=== PATIENT | female | born 1980 | race Caucasian/White ===

== ENCOUNTER 2018-11-22 17:55 | Inpatient (IN) | payer SELFPAY ==
[2018-11-22 18:40] LABS: #Basophils 0.1 thou/uL (0.0-0.2); #Eosinphils 0.1 thou/uL (0.0-0.7); #Lymphocytes 1.4 thou/uL (1.20-3.40); #Monocytes 0.3 thou/uL (0.11-0.59); #Neutrophils 4.5 thou/uL (1.40-6.50); %Basophils 1.2 % (0.0-1.0); %Eosinophils 1.8 % (0.0-10.0); %Lymphocytes 21.9 % (21.0-51.0); %Neutrophils 70.2 % (42.0-75.0); Hemoglobin 13.3 g/dL (12.0-16.0); Mean Corpuscular HGB CONC 34.1 g/dL (32.0-36.0); Mean Corpuscular Hemoglobin 31.8 pg (27.0-31.0); Mean Corpuscular Volume 93.3 fL (78.0-98.0); Mean Platelet Volume 7.1 fL (7.4-10.4); Platelet Count 211 thou/uL (130-400); RBC Distribution Width 12.3 % (11.5-14.5); White Blood Cell (WBC) Count 6.4 thou/uL (4.8-10.8)
[2018-11-22 19:04] LABS: ALT (SGPT) 15 U/L (8-55); AST (SGOT) 22 U/L (5-34); Alkaline Phosphatase 72 U/L (40-150); Anion Gap 13 mmol/L (10-20); BUN (Urea Nitrogen) 12 mg/dL (7.0-18.7); Bilirubin, Total 0.3 mg/dL (0.2-1.2); Calc. Creatinine Clearance 0 mL/min (70-130); Carbon Dioxide 29 mmol/L (22-29); Chloride 101 mmol/L (98-107); Estimated GFR-MDRD 78; Globulin 3.1 g/dL (2.4-3.5); Glucose 98 mg/dL (70-105); Potassium 4.4 mmol/L (3.5-5.1); Protein, Total 7.1 g/dL (6.0-8.3); Sodium 139 mmol/L (136-145)
[2018-11-22 19:13] LABS: Calcium 5.2 mg/dL (7.8-10.44)
[2018-11-22 20:05] LABS: Syphilis Antibody Index 20.53 S/CO (<1.00 Non-Reactive)
[2018-11-22 22:14] LABS: Bacteria/HPF None Seen HPF (None Seen); Bilirubin Negative (Negative); Blood, Urine 2+ (Negative); Clarity Clear (Clear); Glucose, Urine (Dipstick) Normal (Negative); Leukocyte Negative Leu/uL (Negative); Nitrite Negative (Negative); Protein, Urine (Dipstick) 10 mg/dL (Neg-Trace); RBC/HPF 0-3 HPF (0-3); Squamous Epithelial 0-3 HPF (0-3); Urobilinogen 3 mg/dL (Less than 2); WBC/HPF 0-3 HPF (0-3)
[2018-11-22] MEDS ORDERED: Calcium Gluc 4.6 MEQ/10 ML (100 MG/ML) ONE (23:10)
[2018-11-22] MEDS ORDERED: Ketorolac Tromethamine 30 MG/ML VIAL ONE (23:10)
--- NOTE | 2018-11-23 00:26 | RAD ---
RADIOGRAPH CHEST 1 VIEW: DATE: 11/22/2018 10:56 PM HISTORY: 37-year-old female with rash and fatigue FINDINGS: The visualized lung leslie are clear. The cardiomediastinal silhouette and hilar shadows are normal. The lateral costophrenic angles are sharp. The osseous structures appear normal. There is no pneumothorax. IMPRESSION: Negative.
[2018-11-23] MEDS ORDERED: Ondansetron PF 4 MG/2 ML Vial IVP PRN (00:43)
[2018-11-23] MEDS ORDERED: Ondansetron ODT 4 MG TAB SL PRN (00:43)
[2018-11-23 00:45] VITALS: BMI 38.9
[2018-11-23 00:57] LABS: Syphilis Antibody REACTIVE (Nonreactive)
[2018-11-23 02:29] LABS: #Eosinphils 0.1 thou/uL (0.0-0.7); #Lymphocytes 1.3 thou/uL (1.20-3.40); #Monocytes 0.3 thou/uL (0.11-0.59); #Neutrophils 3.3 thou/uL (1.40-6.50); %Basophils 0.3 % (0.0-1.0); %Eosinophils 1.3 % (0.0-10.0); %Lymphocytes 26.4 % (21.0-51.0); %Monocytes 5.8 % (0.0-10.0); %Neutrophils 66.3 % (42.0-75.0); Hemoglobin 12.3 g/dL (12.0-16.0); Mean Corpuscular HGB CONC 34.4 g/dL (32.0-36.0); Mean Corpuscular Hemoglobin 32.1 pg (27.0-31.0); Mean Corpuscular Volume 93.2 fL (78.0-98.0); Mean Platelet Volume 7.2 fL (7.4-10.4); Platelet Count 177 thou/uL (130-400); RBC Distribution Width 12.1 % (11.5-14.5); Red Blood Cell (RBC) Count 3.83 mill/uL (4.20-5.40); White Blood Cell (WBC) Count 4.9 thou/uL (4.8-10.8)
[2018-11-23 02:52] LABS: Anion Gap 16 mmol/L (10-20); BUN (Urea Nitrogen) 14 mg/dL (7.0-18.7); Calc. Creatinine Clearance 170 mL/min (70-130); Carbon Dioxide 20 mmol/L (22-29); Chloride 104 mmol/L (98-107); Estimated GFR-MDRD 81; Glucose 116 mg/dL (70-105); Magnesium 1.6 mg/dL (1.6-2.6); Potassium 3.7 mmol/L (3.5-5.1); Sodium 136 mmol/L (136-145)
[2018-11-23 02:55] LABS: Calcium 5.2 mg/dL (7.8-10.44)
[2018-11-23] MEDS ORDERED: Calcium Gluconate 4.6 MEQ in Sodium Chloride 0.9% 100 ML IVPB ONE (03:15)
[2018-11-23] MEDS: Acetaminophen 325 MG TAB PO PRN ×2 (04:00→09:59)
[2018-11-23] MEDS ORDERED: Bicillin CR 1.2 MILL UNITS/2 ML SYRINGE IM SCH (08:45)
[2018-11-23] MEDS ORDERED: Senokot S 8.6-50 MG TAB PO PRN (09:47)
[2018-11-23 09:53] LABS: #Lymphocytes 1.2 thou/uL (1.20-3.40); #Monocytes 0.3 thou/uL (0.11-0.59); #Neutrophils 4.5 thou/uL (1.40-6.50); %Basophils 0.5 % (0.0-1.0); %Eosinophils 0.8 % (0.0-10.0); %Lymphocytes 19.4 % (21.0-51.0); %Monocytes 4.6 % (0.0-10.0); %Neutrophils 74.7 % (42.0-75.0); Hemoglobin 13.2 g/dL (12.0-16.0); Mean Corpuscular HGB CONC 34.6 g/dL (32.0-36.0); Mean Corpuscular Hemoglobin 31.7 pg (27.0-31.0); Mean Corpuscular Volume 91.7 fL (78.0-98.0); Mean Platelet Volume 7.3 fL (7.4-10.4); Platelet Count 211 thou/uL (130-400); RBC Distribution Width 12.2 % (11.5-14.5); Red Blood Cell (RBC) Count 4.17 mill/uL (4.20-5.40)
[2018-11-23 09:59] LABS: BHCG - Serum Negative (NEGATIVE); Pregs Control Background? CLEAR/WHITE (CLR/WHITE); Pregs Control Bar Appear? YES (CONTROL BAR)
[2018-11-23 10:18] LABS: ALT (SGPT) 16 U/L (8-55); AST (SGOT) 23 U/L (5-34); Albumin 3.8 g/dL (3.5-5.0); Alkaline Phosphatase 66 U/L (40-150); Anion Gap 14 mmol/L (10-20); BUN (Urea Nitrogen) 14 mg/dL (7.0-18.7); Bilirubin, Total 0.2 mg/dL (0.2-1.2); Calc. Creatinine Clearance 162 mL/min (70-130); Carbon Dioxide 24 mmol/L (22-29); Chloride 103 mmol/L (98-107); Estimated GFR-MDRD 77; Globulin 3.6 g/dL (2.4-3.5); Glucose 91 mg/dL (70-105); Lipase 17 U/L (8-78); Phosphorus 7.6 mg/dL (2.3-4.7); Potassium 4.3 mmol/L (3.5-5.1); Protein, Total 7.4 g/dL (6.0-8.3); Sodium 137 mmol/L (136-145)
--- NOTE | 2018-11-23 10:24 | HP ---
PRIMARY CARE PHYSICIAN: None. CHIEF COMPLAINT: Rash, facial tic. HISTORY OF PRESENT ILLNESS: Ms. Peña is a 37-year-old female, who reported to the emergency room on 11/22/2018 for evaluation of a rash to her body x1 month. She also reported a sore to her vaginal area. Reports that the rash started on her trunk about one month ago and spread to her body. Reports that she used the [facility] service and was told that the two main concerns were syphilis and Ramer spotted fever. She has been living in [place] for this past summer. She reports that her has had the same rash for a lot longer and reports that he does have a history of IV drug abuse, but neither have been diagnosed with any STIs. The patient also has a history of low calcium and has been taking supplementation twice a day for the least the last month. The patient's EKG in the emergency room showed a prolonged QT. Otherwise normal sinus rhythm, beats per minute 85, no ectopics, axis is normal. Pertinent lab results; calcium is 5.2, magnesium 1.7, TSH 0.93, PTH less than 4. Troponin undetectable. The patient was given an amp of calcium gluconate over the overnight and repeat calcium was 5.2 as well. The patient admitted to the observation unit for further management. REVIEW OF SYSTEMS: Reports fatigue. Reports rash. Reports a sore to her vaginal area. Denies fever or chills. Does report facial tic on the left side intermittently. All other systems reviewed and are negative unless mentioned in the HPI. PAST MEDICAL HISTORY: Pertinent for hypocalcemia. PAST SURGICAL HISTORY: section x2. Tubal ligation. PSYCHIATRIC HISTORY: None. SOCIAL HISTORY: Drinks socially. She is a former drug user, abused marijuana. She is a tobacco smoker, smokes half a pack a day. ALLERGIES: NONE. CURRENT MEDICATIONS: 1. p.o. b.i.d. 2. Multivitamin once a day. PHYSICAL EXAMINATION: VITAL SIGNS: Blood pressure 118/74, pulse is 80, respiratory rate is 18, PO2 sats are 96% on room air, temp is 98.4. CONSTITUTIONAL: The patient is alert and oriented x3. She is tearful. HEENT: Head is atraumatic and normocephalic. Eyes; pupils are equally round and reactive to light. ENT; mouth exam is normal. Mucous membranes are moist. NECK: Trachea is midline. Normal range of motion. RESPIRATORY/CHEST: Breath sounds are clear. There are no findings of any respiratory distress. CARDIOVASCULAR: Heart sounds are normal. Regular rate and rhythm. ABDOMEN: Nontender. Bowel sounds are heard. BACK: Normal inspection. Normal range of motion of upper extremity. Motor strength is normal. Sensation intact. Radial pulses normal. Lower extremity, range of motion is normal. Motor strength is normal. Sensation intact. Pedal pulses are equal bilaterally. NEUROLOGIC: The patient is oriented to person, place, and time. Speech is normal. Cranial nerves 2 through 12 are grossly intact. SKIN: There is a rash present, flat, erythematous. Rash to the body, sparing palms, soles, and mucosal membranes. PSYCH: The patient has a normal affect, however, she is tearful when discussing her recent past medical history. PLAN AND ASSESSMENT: 1. Diffuse rash. ER ordered a syphilis titer which was positive. We will order some penicillin IM. Contact Dr. Lopez as a consult. We will do some HIV, VPIII, hepatitis panel, echocardiogram, test. 2. Hypocalcemia. We will recheck levels. PTH is also low. We will ask Nephrology to consult. 3. Case was discussed with Dr. Bone, who agrees to plan. GI and deep venous thrombosis prophylaxis has been started. Job ID: [id number]
[2018-11-23 10:30] LABS: Calcium 5.3 mg/dL (7.8-10.44)
[2018-11-23 10:38] LABS: HBCM Index 0.22 S/CO (0-0.79); HBSAg Index 0.19 S/CO (0-0.99); HIV (1/2) Antibody/Antigen Non-Reactive (NonReactive); HIV 1/2 INDEX 0.11 S/CO (<1.00); Hep A IgM AB Non-Reactive (NonReactive); Hep B Surf Ag Non-Reactive S/CO (NonReactive); Hep C IgG Ab Non-Reactive (NonReactive); Hep C Index 0.08 S/CO (0-0.79); Hepatitis B Core IgM Abs Non-Reactive (NonReactive)
[2018-11-23] MEDS ORDERED: Bicillin LA 2.4 MILL.UNITS/4 ML SYRINGE IM SCH ×2 (12:30→14:15)
[2018-11-23] MEDS: Nicotine 14 MG PATCH TD SCH (12:39)
[2018-11-23] MEDS ORDERED: Calcitriol 0.25 MCG CAP PO SCH (15:00)
[2018-11-23] MEDS ORDERED: Ergocalciferol 1.25 MG(50,000 UNITS) CAP PO SCH (15:00)
[2018-11-23] MEDS: Calcium Carbonate 500 MG ChewTAB PO SCH ×2 (15:35→21:36)
[2018-11-23 15:38] LABS: Magnesium 1.9 mg/dL (1.6-2.6)
[2018-11-23 15:47] LABS: Calcium 5.5 mg/dL (7.8-10.44)
--- NOTE | 2018-11-23 21:26 | CON ---
DATE OF CONSULTATION: REASON FOR CONSULTATION: Hypocalcemia. HISTORY OF PRESENT ILLNESS: A 37-year-old female presented to the hospital earlier today with weakness and numbness. The patient had a prolonged QT evaluation. The patient had a facial tic. The patient had hypocalcemia and I was consulted for evaluation and management. The patient had hyperphosphatemia and a very low PTH. PAST SURGICAL HISTORY: History of . PAST MEDICAL HISTORY: Hypocalcemia. SOCIAL HISTORY: No alcohol. The patient was a drug abuser in the past. FAMILY HISTORY: Negative for ESRD. ALLERGIES: REVIEWED. HOME MEDICATIONS: List reviewed. HOSPITAL MEDICATIONS: Reviewed. REVIEW OF SYSTEMS: A 15-point review of systems was performed and was negative except for positives noted above. GENERAL: HEAD: NECK: No swelling or lumps. NOSE: No epistaxis or discharge. EYES: No diplopia or pain. RESPIRATORY: CARDIOVASCULAR: GASTROINTESTINAL: /SOFTWARE CONSULTANT: MUSCULOSKELETAL: No joint pain. NEUROPSYCHIATRIC SYSTEMS: No suicidal ideation. No ideation. SKIN: Denies any rash or ulcer. CONSTITUTIONAL: No fever or chills. PHYSICAL EXAMINATION: CONSTITUTIONAL: The patient is awake and alert. VITAL SIGNS: Afebrile, pulse 75, breathing 16, blood pressure was 126/71. GENERAL APPEARANCE AND MENTAL STATUS: Fair. HEAD/NECK: Normocephalic. Atraumatic. EYES: EOMI. No deformity. EARS: Clear. No ulcers. NOSE: Intact. No lesions. MOUTH: Clear. No discharge. THROAT: Clear. No exudate. LUNGS: Clear. No crackles. CARDIAC: S1, S2. No rub. ABDOMEN: Benign. Bowel sounds positive. GENITALIA/RECTUM: Grider absent. BACK/EXTREMITIES: Edema 0+. NEUROLOGICAL: Alert and motor intact. SKIN: LYMPHATICS: LABORATORY DATA: Reviewed. ASSESSMENT AND PLAN: Chronic kidney disease, stage 1, stable; hypocalcemia because of hypoparathyroidism. I would recommend a 24-hour urine calcium. Start the patient on calcitriol as well as elemental calcium. Very close observation in ICU is going to be recommended. The patient will also need autoimmune workup for possible autoimmune cause of hypocalcemia or hypoparathyroidism. Overall prognosis is guarded. Job ID: [id number]
[2018-11-23] MEDS: Famotidine 20 MG TAB PO SCH (21:36)
[2018-11-23] MEDS ORDERED: HYDROcodone/Acetaminophen 5/325 mg Tablet PO SCH (22:15)
[2018-11-23] MEDS ORDERED: diphenhydrAMINE 25 MG CAP PO SCH (22:15)
--- NOTE | 2018-11-23 23:34 | CON ---
DATE OF CONSULTATION: 11/23/2018 REASON FOR CONSULTATION: Secondary syphilis. HISTORY OF PRESENT ILLNESS: A 37-year-old, history of seizure activity, hypocalcemia, prior tubal ligation who recently remarried in May, I believe this year, and has had a skin rash for the past few weeks. Her also had a skin rash and was treated for herpes simplex elsewhere. She came in and also reported ulcer in the vaginal area. The rash started about a month before admission. Initially told that was an allergy to NSAIDs, but then when it did not go away, she decided to come for evaluation. An RPR titer with specific syphilis serology was positive at a titer of 1:64. She received treatment here and she is feeling okay now. No headaches, visual symptoms, sore throat, odynophagia, or dysphagia. No cough or sputum production. No chest pain. No abdominal pain or diarrhea. No genitourinary symptoms. No joint symptoms. PAST MEDICAL HISTORY: Hypocalcemia, seizure disorder, , tubal ligation. SOCIAL HISTORY: Current smoker. Drinks occasionally. Recently got remarried. MEDICATIONS: Citracal and vitamins. FAMILY HISTORY: Noncontributory. CURRENT MEDICATIONS: 1. Rocaltrol. 2. Calcium gluconate. 3. Lovenox. 4. Drisdol. 5. Pepcid. 6. Nicoderm. 7. Senokot. 8. She received a dose of benzathine penicillin 2.4 million units x1. ALLERGIES: NEGATIVE. PHYSICAL EXAMINATION: VITAL SIGNS: Normal temperature. SKIN: Shows macular eruptions distributed throughout body skin including face, chest, abdomen, back, appendicular skin structures. HEENT: No lymphadenopathy. Ocular movements conjugate. Sclerae are white. Oral cavity is normal. NECK: Supple. LUNGS: Symmetric. Clear breath sounds. HEART: S1 and S2, regular rate. No S3 or S4. ABDOMEN: Soft, not distended or tender. No ascites. No bladder distention. EXTREMITIES: No joint inflammatory activity. NEUROLOGIC: Nonfocal including cognitive function. LABORATORY DATA: White cell count 6.4, hemoglobin 13, platelets 211. Sodium 136 creatinine 0.83, calcium was 5.2 and now 5.5. Magnesium 1.6. PTH was less than 4. Albumin 3.8. Syphilis serology was positive with a titer of 1:64. Other serologies including HIV and hepatitis serology were all negative. Vaginal screening for Nirali, Trichomonas negative as well. Chest x-ray was within normal limits. ASSESSMENT: Secondary syphilis with negative evaluation for other sexually transmitted diseases in the setting of hypoparathyroidism. The patient has already been treated for secondary syphilis and no further injections are needed. Followup titers at every quarter to verify decrease in titers over the next few months. I will be glad to follow up patient in clinic if so desired or she can do that with her PCP. Rarely syphilis has been noted to infiltrate parathyroid glands and be associated with hypoparathyroidism, but typically in tertiary syphilis cases, so I think that it is unlikely in this case. Job ID: [id number]
[2018-11-24] MEDS ORDERED: Acetaminophen 325 MG TAB PO PRN (05:13)
[2018-11-24 05:18] LABS: #Lymphocytes 0.8 thou/uL (1.20-3.40); #Monocytes 0.3 thou/uL (0.11-0.59); #Neutrophils 6.4 thou/uL (1.40-6.50); %Basophils 0.2 % (0.0-1.0); %Eosinophils 0.6 % (0.0-10.0); %Lymphocytes 10.7 % (21.0-51.0); %Monocytes 3.4 % (0.0-10.0); %Neutrophils 85.1 % (42.0-75.0); Hemoglobin 12.8 g/dL (12.0-16.0); Mean Corpuscular HGB CONC 34.1 g/dL (32.0-36.0); Mean Corpuscular Hemoglobin 31.1 pg (27.0-31.0); Mean Corpuscular Volume 91.2 fL (78.0-98.0); Mean Platelet Volume 7.7 fL (7.4-10.4); Platelet Count 189 thou/uL (130-400); RBC Distribution Width 12.2 % (11.5-14.5); Red Blood Cell (RBC) Count 4.13 mill/uL (4.20-5.40); White Blood Cell (WBC) Count 7.5 thou/uL (4.8-10.8)
[2018-11-24 05:40] LABS: ALT (SGPT) 16 U/L (8-55); AST (SGOT) 20 U/L (5-34); Albumin 3.6 g/dL (3.5-5.0); Alkaline Phosphatase 63 U/L (40-150); Anion Gap 16 mmol/L (10-20); BUN (Urea Nitrogen) 11 mg/dL (7.0-18.7); Bilirubin, Total 0.3 mg/dL (0.2-1.2); Calc. Creatinine Clearance 174 mL/min (70-130); Carbon Dioxide 24 mmol/L (22-29); Chloride 102 mmol/L (98-107); Estimated GFR-MDRD 82; Globulin 3.5 g/dL (2.4-3.5); Glucose 101 mg/dL (70-105); Potassium 4.1 mmol/L (3.5-5.1); Protein, Total 7.1 g/dL (6.0-8.3); Sodium 138 mmol/L (136-145)
[2018-11-24 05:44] LABS: Calcium 5.8 mg/dL (7.8-10.44)
[2018-11-24] MEDS: Calcium Carbonate 500 MG ChewTAB PO SCH ×2 (08:58→15:49)
[2018-11-24] MEDS: Famotidine 20 MG TAB PO SCH (08:58)
[2018-11-24] MEDS: Nicotine 14 MG PATCH TD SCH (08:59)
[2018-11-24] MEDS ORDERED: Enoxaparin Sodium 40 MG/0.4 ML SYRINGE SC SCH (09:00)
[2018-11-24] MEDS ORDERED: Calcitriol 0.25 MCG CAP PO SCH (09:00)
--- NOTE | 2018-11-24 12:44 | PRG ---
DATE OF SERVICE: 11/24/2018 SUBJECTIVE: A 37-year-old female, being seen for hypocalcemia. The patient denied nausea, vomiting, or chest pain. OBJECTIVE: GENERAL: The patient is awake and alert. VITAL SIGNS: Afebrile, pulse 80, breathing 16, blood pressure 135/68. GENERAL APPEARANCE AND MENTAL STATUS: Fair. HEAD/NECK: Normocephalic. Atraumatic. EYES: EOMI. No deformity. EARS: Clear. No ulcers. NOSE: Intact. No lesions. MOUTH: Clear. No discharge. THROAT: Clear. No exudate. LUNGS: Clear. No crackles. CARDIAC: S1, S2. No rub. ABDOMEN: Benign. Bowel sounds positive. GENITALIA/RECTUM: Grider absent. BACK/EXTREMITIES: Edema 0+. NEUROLOGICAL: Alert and motor intact. SKIN: LYMPHATICS: LABORATORY DATA: Show hemoglobin 12.8. Calcium 5.8. ASSESSMENT AND PLAN: 1. Hypocalcemia, improved to 6.1. 2. Hypoparathyroidism, stable. 3. Medication based on GFR, appropriate. 4. Continue calcium supplementation. Job ID: [id number]
[2018-11-24] MEDS ORDERED: Ergocalciferol 1.25 MG(50,000 UNITS) CAP PO SCH (15:30)
[2018-11-24 15:44] LABS: Urine Total Volume 2325 mL (600-1600)
[2018-11-24 16:17] VITALS: BP 158/79; TEMP 98.3
--- NOTE | 2018-11-25 17:06 | EKG ---
Test Reason : Blood Pressure : / mmHG Vent. Rate : 082 BPM Atrial Rate : 082 BPM P-R Int : 152 ms QRS Dur : 084 ms QT Int : 400 ms P-R-T Axes : 034 028 040 degrees QTc Int : 467 ms Normal sinus rhythm Normal ECG When compared with ECG of 22-NOV-2018 21:31, (Unconfirmed) No significant change was found Confirmed by DR. Eva LEE ([id number]) on 11/25/2018 5:05:31 PM Referred By: Confirmed By:DR. Eva LEE
[2018-11-26 00:07] LABS: RMSF IgG (EIA) Negative (Negative); RMSF IgM 1.18 index (0.00-0.89)
[2018-11-30] MEDS ORDERED: Ergocalciferol 1.25 MG(50,000 UNITS) CAP PO SCH (09:00)
== END 2018-11-24 19:25 | disposition home or self-care (01) | DRG 641 ==
LOC: ERS 17:55 → 2SW 11-23 00:24 → OBSVTOIN 11-23 00:24 → 2NO 11-23 19:54
PROVIDERS: ADMIT Hospitalist; ATTEND Hospitalist
DX: E83.51 Hypocalcemia (principal); A51.39 Other secondary syphilis of skin; F17.210 Nicotine dependence, cigarettes, uncomplicated; E83.39 Other disorders of phosphorus metabolism; N18.1 Chronic kidney disease, stage 1; Z98.51 Tubal ligation status
CPT/HCPCS: 36415; 71045; 80048; 80053; 80074; 81003; 81015; 82306; 82340; 82652; 83690; 83735; 83970; 84100; 84443; 84484; 84703; 85025; 86593; 86757; 86780; 87389; 87480; 87510; 87660; 93005; 93010; 93306; J0558; J0561; J0610; J1650; J1885; J3475; J3490; Q0163

== ENCOUNTER 2018-11-26 06:03 | Emergency (ER) | payer SELFPAY ==
[2018-11-26] MEDS ORDERED: Ondansetron ODT 4 MG TAB ONE (06:10)
[2018-11-26 06:31] LABS: #Eosinphils 0.1 thou/uL (0.0-0.7); #Lymphocytes 1.9 thou/uL (1.20-3.40); #Monocytes 0.4 thou/uL (0.11-0.59); #Neutrophils 3.3 thou/uL (1.40-6.50); %Basophils 0.5 % (0.0-1.0); %Lymphocytes 33.4 % (21.0-51.0); %Monocytes 6.2 % (0.0-10.0); Hemoglobin 13.8 g/dL (12.0-16.0); Mean Corpuscular HGB CONC 33.2 g/dL (32.0-36.0); Mean Corpuscular Hemoglobin 30.5 pg (27.0-31.0); Mean Corpuscular Volume 92.1 fL (78.0-98.0); Mean Platelet Volume 7.5 fL (7.4-10.4); Platelet Count 199 thou/uL (130-400); RBC Distribution Width 12.3 % (11.5-14.5); Red Blood Cell (RBC) Count 4.52 mill/uL (4.20-5.40); White Blood Cell (WBC) Count 5.7 thou/uL (4.8-10.8)
[2018-11-26 06:41] LABS: BHCG - Serum Negative (NEGATIVE); Pregs Control Background? CLEAR/WHITE (CLR/WHITE); Pregs Control Bar Appear? YES (CONTROL BAR)
[2018-11-26 07:06] LABS: ALT (SGPT) 20 U/L (8-55); AST (SGOT) 24 U/L (5-34); Alkaline Phosphatase 60 U/L (40-150); Anion Gap 15 mmol/L (10-20); BUN (Urea Nitrogen) 13 mg/dL (7.0-18.7); Bilirubin, Total 0.4 mg/dL (0.2-1.2); Calc. Creatinine Clearance 0 mL/min (70-130); Calcium 7.7 mg/dL (7.8-10.44); Carbon Dioxide 26 mmol/L (22-29); Chloride 101 mmol/L (98-107); Estimated GFR-MDRD 82; Glucose 89 mg/dL (70-105); Potassium 3.9 mmol/L (3.5-5.1); Sodium 138 mmol/L (136-145)
[2018-11-26] MEDS ORDERED: Acetaminophen 500 MG TAB ONE (07:17)
--- NOTE | 2018-11-27 14:57 | EKG ---
Test Reason : Blood Pressure : / mmHG Vent. Rate : 081 BPM Atrial Rate : 081 BPM P-R Int : 156 ms QRS Dur : 082 ms QT Int : 402 ms P-R-T Axes : 033 022 035 degrees QTc Int : 466 ms Normal sinus rhythm Normal ECG Confirmed by HALLIE GANN M.D. ([id number]), city editor ANDREW OATES ([id number]) on 11/27/2018 2:57:25 PM Referred By: Confirmed By:HALLIE GANN M.D.
== END 2018-11-26 07:46 | disposition home or self-care (01) ==
LOC: ERS 06:03
DX: R11.2 Nausea with vomiting, unspecified (principal); R19.7 Diarrhea, unspecified; E83.51 Hypocalcemia; F41.9 Anxiety disorder, unspecified; F17.210 Nicotine dependence, cigarettes, uncomplicated; Z79.899 Other long term (current) drug therapy
CPT/HCPCS: 36415; 80053; 84703; 85025; 93005; 96360; Q0162

== ENCOUNTER 2018-12-24 09:04 | Emergency (ER) | payer MEDICAID ==
[2018-12-24 11:01] LABS: #Basophils 0.1 thou/uL (0.0-0.2); #Eosinphils 0.1 thou/uL (0.0-0.7); #Lymphocytes 2.2 thou/uL (1.20-3.40); #Monocytes 0.2 thou/uL (0.11-0.59); #Neutrophils 5.3 thou/uL (1.40-6.50); %Basophils 0.7 % (0.0-1.0); %Eosinophils 0.7 % (0.0-10.0); %Lymphocytes 28.1 % (21.0-51.0); %Monocytes 3.1 % (0.0-10.0); %Neutrophils 67.4 % (42.0-75.0); Hemoglobin 14.6 g/dL (12.0-16.0); Mean Corpuscular HGB CONC 35.6 g/dL (32.0-36.0); Mean Corpuscular Hemoglobin 32.8 pg (27.0-31.0); Mean Corpuscular Volume 92.2 fL (78.0-98.0); Mean Platelet Volume 8.7 fL (7.4-10.4); Platelet Count 161 thou/uL (130-400); RBC Distribution Width 12.8 % (11.5-14.5); Red Blood Cell (RBC) Count 4.46 mill/uL (4.20-5.40); White Blood Cell (WBC) Count 7.9 thou/uL (4.8-10.8)
[2018-12-24 11:22] LABS: ALT (SGPT) 8 U/L (8-55); AST (SGOT) 12 U/L (5-34); Albumin 4.2 g/dL (3.5-5.0); Alkaline Phosphatase 58 U/L (40-110); Anion Gap 15 mmol/L (10-20); BUN (Urea Nitrogen) 12 mg/dL (7.0-18.7); Bilirubin, Total 0.3 mg/dL (0.2-1.2); Calc. Creatinine Clearance 0 mL/min (70-130); Calcium 8.2 mg/dL (7.8-10.44); Carbon Dioxide 27 mmol/L (22-29); Chloride 102 mmol/L (98-107); Estimated GFR-MDRD 75; Globulin 2.7 g/dL (2.4-3.5); Glucose 91 mg/dL (70-105); Potassium 4.6 mmol/L (3.5-5.1); Protein, Total 6.9 g/dL (6.0-8.3); Sodium 139 mmol/L (136-145)
== END 2018-12-24 11:52 | disposition home or self-care (01) ==
LOC: ERS 09:04
DX: R07.89 Other chest pain (principal); F41.9 Anxiety disorder, unspecified; F17.210 Nicotine dependence, cigarettes, uncomplicated; E20.9 Hypoparathyroidism, unspecified
CPT/HCPCS: 36415; 80053; 84484; 85025; 93005

== ENCOUNTER 2018-12-27 10:55 | Outpatient (CLI) | payer MEDICAID ==
--- NOTE | 2018-12-27 11:42 | ULT ---
Exam: Thyroid ultrasound HISTORY: Idiopathic hypothyroidism COMPARISON: None FINDINGS: Thyroid isthmus: 0.38 cm Right thyroid lobe: 4.5 x 1.3 x 1.8 cm Left thyroid lobe 4.8 x 1.4 x 1.5 cm Overall, thyroid gland has a homogeneous echotexture. There is a complex 0.7 x 0.8 x 0.7 cm nodule in the upper pole of the left thyroid lobe. The nodule is slightly taller than it is wide. IMPRESSION: 1. Complex nodule in the upper pole left thyroid lobe with a TIRADS category score of TR 4, moderate ly suspicious. Follow-up imaging in 6 months is recommended.
== END 2018-12-27 10:56 | disposition home or self-care (01) ==
LOC: BICULT 10:55
PROVIDERS: ATTEND Family Medicine
DX: E20.0 Idiopathic hypoparathyroidism (principal); E04.1 Nontoxic single thyroid nodule
CPT/HCPCS: 76536

== ENCOUNTER 2019-03-24 08:58 | Outpatient (CLI) | payer OTHER ==
--- NOTE | 2019-03-24 09:38 | MMO ---
Bilateral MAMMO Bilat Diag [facility]. CLINICAL HISTORY: Patient is 38 years old and is seen for diagnostic exam and non-bloody discharge in the right breast. The patient has no family history of breast cancer. The patient has no personal history of cancer. VIEWS: The views performed were: bilateral craniocaudal with tomosynthesis; bilateral mediolateral oblique with tomosynthesis; and bilateral mediolateral with tomosynthesis. This study has been interpreted with the assistance of computer-aided detection. MAMMOGRAM FINDINGS: There are scattered fibroglandular densities. There are no suspicious masses, suspicious calcifications, or new areas of architectural distortion. IMPRESSION: THERE IS NO MAMMOGRAPHIC EVIDENCE OF MALIGNANCY. A ROUTINE FOLLOW-UP MAMMOGRAM IN 1 YEAR IS RECOMMENDED. THE RESULTS OF THIS EXAM WERE SENT TO THE PATIENT. ACR BI-RADS Category 1 - Negative MAMMOGRAPHY NOTE: 1. A negative mammogram report should not delay a biopsy if a dominant of clinically suspicious mass is present. 2. Approximately 10% to 15% of breast cancers are not detected by mammography. 3. Adenosis and dense breasts may obscure an underlying neoplasm. Reported by: FABI SCALES MD Electonically Signed: [id number]
== END 2019-03-24 08:59 | disposition home or self-care (01) ==
LOC: BICMAMMO 08:58
PROVIDERS: ATTEND Family Medicine
DX: N60.19 Diffuse cystic mastopathy of unspecified breast (principal)
CPT/HCPCS: 77066; G0279

== ENCOUNTER 2020-05-28 11:34 | Inpatient (IN) | payer OTHER ==
[2020-05-28 12:19] LABS: #Eosinphils 0.1 thou/uL (0.0-0.7); #Lymphocytes 2.1 thou/uL (1.20-3.40); #Monocytes 0.4 thou/uL (0.11-0.59); #Neutrophils 5.2 thou/uL (1.40-6.50); %Basophils 0.3 % (0.0-1.0); %Eosinophils 1.5 % (0.0-10.0); %Lymphocytes 26.3 % (21.0-51.0); %Monocytes 4.7 % (0.0-10.0); %Neutrophils 67.2 % (42.0-75.0); Hemoglobin 11.9 g/dL (12.0-16.0); Mean Corpuscular HGB CONC 34.5 g/dL (32.0-36.0); Mean Corpuscular Volume 95.5 fL (78.0-98.0); Mean Platelet Volume 8.7 fL (7.4-10.4); Platelet Count 165 thou/uL (130-400); RBC Distribution Width 12.2 % (11.5-14.5); White Blood Cell (WBC) Count 7.8 thou/uL (4.8-10.8)
[2020-05-28 12:49] LABS: ALT (SGPT) 10 U/L (8-55); AST (SGOT) 14 U/L (5-34); Alkaline Phosphatase 65 U/L (40-110); Anion Gap 16 mmol/L (10-20); BUN (Urea Nitrogen) 40 mg/dL (7.0-18.7); Bilirubin, Total 0.2 mg/dL (0.2-1.2); Calc. Creatinine Clearance 0 mL/min (70-130); Carbon Dioxide 28 mmol/L (22-29); Chloride 99 mmol/L (98-107); Globulin 3.4 g/dL (2.4-3.5); Glucose 86 mg/dL (70-105); Potassium 3.2 mmol/L (3.5-5.1); Protein, Total 7.4 g/dL (6.0-8.3); Sodium 140 mmol/L (136-145)
[2020-05-28 13:04] LABS: Calcium 12.6 mg/dL (7.8-10.44)
[2020-05-28] MEDS ORDERED: Sodium Chloride 0.9% 1,000 ML IV SCH (15:45)
[2020-05-28] MEDS ORDERED: Acetaminophen 650 MG Suppository PR PRN (16:09)
[2020-05-28] MEDS ORDERED: Acetaminophen 325 MG TAB PO PRN (16:09)
[2020-05-28] MEDS ORDERED: SUMAtriptan Succinate 25 MG TAB PO PRN (16:31)
[2020-05-28 16:42] LABS: Bacteria/HPF None Seen HPF (None Seen); Bilirubin Negative (Negative); Blood, Urine 3+ (Negative); Clarity Turbid (Clear); Glucose, Urine (Dipstick) Normal (Negative); Ketone, Urine Negative (Negative); Leukocyte 25 Leu/uL (Negative); Nitrite Negative (Negative); Protein, Urine (Dipstick) 30 mg/dL (Neg-Trace); RBC/HPF 21-50 HPF (0-3); Specific Gravity, Urine 1.009 (1.002-1.036); Squamous Epithelial 0-3 HPF (0-3); Urobilinogen Normal mg/dL (Less than 2)
[2020-05-28 16:57] LABS: Phosphorus 4.2 mg/dL (2.3-4.7)
[2020-05-28 17:43] LABS: ALT (SGPT) 9 U/L (8-55); AST (SGOT) 14 U/L (5-34); Albumin 3.8 g/dL (3.5-5.0); Alkaline Phosphatase 70 U/L (40-110); Anion Gap 16 mmol/L (10-20); BUN (Urea Nitrogen) 41 mg/dL (7.0-18.7); Bilirubin, Total 0.2 mg/dL (0.2-1.2); Calc. Creatinine Clearance 0 mL/min (70-130); Calcium 11.8 mg/dL (7.8-10.44); Carbon Dioxide 26 mmol/L (22-29); Chloride 104 mmol/L (98-107); Globulin 3.1 g/dL (2.4-3.5); Glucose 91 mg/dL (70-105); Potassium 3.2 mmol/L (3.5-5.1); Protein, Total 6.9 g/dL (6.0-8.3); Sodium 143 mmol/L (136-145)
[2020-05-28 18:04] VITALS: BMI 49.9
[2020-05-28] MEDS ORDERED: cloNIDine 0.1 MG TAB PO SCH (18:45)
[2020-05-28] MEDS: Sodium Chloride 0.9% 1,000 ML IV SCH (19:16)
[2020-05-28] MEDS: cloNIDine 0.1 MG TAB PO SCH (20:42)
[2020-05-28] MEDS ORDERED: diphenhydrAMINE 25 MG CAP PO SCH (23:45)
[2020-05-28] MEDS: cloNIDine 0.1 MG TAB PO PRN (23:53)
[2020-05-29 04:56] LABS: #Eosinphils 0.1 thou/uL (0.0-0.7); #Lymphocytes 2.6 thou/uL (1.20-3.40); #Monocytes 0.4 thou/uL (0.11-0.59); #Neutrophils 4.2 thou/uL (1.40-6.50); %Basophils 0.3 % (0.0-1.0); %Eosinophils 1.9 % (0.0-10.0); %Lymphocytes 35.2 % (21.0-51.0); %Monocytes 5.6 % (0.0-10.0); Hemoglobin 10.4 g/dL (12.0-16.0); Mean Corpuscular HGB CONC 34.9 g/dL (32.0-36.0); Mean Corpuscular Hemoglobin 33.3 pg (27.0-31.0); Mean Corpuscular Volume 95.5 fL (78.0-98.0); Mean Platelet Volume 8.4 fL (7.4-10.4); Platelet Count 145 thou/uL (130-400); RBC Distribution Width 12.2 % (11.5-14.5); Red Blood Cell (RBC) Count 3.11 mill/uL (4.20-5.40); White Blood Cell (WBC) Count 7.4 thou/uL (4.8-10.8)
[2020-05-29 05:27] LABS: ALT (SGPT) 13 U/L (8-55); AST (SGOT) 18 U/L (5-34); Albumin 3.5 g/dL (3.5-5.0); Alkaline Phosphatase 64 U/L (40-110); Anion Gap 14 mmol/L (10-20); BUN (Urea Nitrogen) 38 mg/dL (7.0-18.7); Bilirubin, Total 0.2 mg/dL (0.2-1.2); Calc. Creatinine Clearance 43 mL/min (70-130); Calcium 10.4 mg/dL (7.8-10.44); Carbon Dioxide 26 mmol/L (22-29); Chloride 104 mmol/L (98-107); Globulin 3.1 g/dL (2.4-3.5); Glucose 102 mg/dL (70-105); Potassium 3.4 mmol/L (3.5-5.1); Protein, Total 6.6 g/dL (6.0-8.3); Sodium 141 mmol/L (136-145)
[2020-05-29] MEDS: hydrALAZINE 20 MG/ML VIAL SLOW IVP PRN (05:30)
[2020-05-29] MEDS: Sodium Chloride 0.9% 1,000 ML IV SCH ×2 (08:15→10:30)
[2020-05-29] MEDS ORDERED: Potassium Chloride 20 MEQ TAB PO SCH (08:30)
[2020-05-29] MEDS: cloNIDine 0.1 MG TAB PO SCH ×2 (08:56→21:47)
[2020-05-29] MEDS: Amlodipine 10 MG TAB PO SCH (08:56)
[2020-05-29] MEDS ORDERED: FLU VACC QS2020-21(6MOS UP)/PF 60 MCG/0.5 ML SYRINGE IM ONE (09:00)
[2020-05-29] MEDS: Calcium Carbonate 500 MG ChewTAB PO SCH (21:47)
[2020-05-30] MEDS: hydrALAZINE 20 MG/ML VIAL SLOW IVP PRN (03:51)
[2020-05-30 04:39] LABS: #Eosinphils 0.1 thou/uL (0.0-0.7); #Lymphocytes 2.7 thou/uL (1.20-3.40); #Monocytes 0.4 thou/uL (0.11-0.59); #Neutrophils 5.6 thou/uL (1.40-6.50); %Basophils 0.2 % (0.0-1.0); %Eosinophils 1.6 % (0.0-10.0); %Lymphocytes 30.4 % (21.0-51.0); %Monocytes 4.4 % (0.0-10.0); %Neutrophils 63.4 % (42.0-75.0); Hemoglobin 10.5 g/dL (12.0-16.0); Mean Corpuscular HGB CONC 34.4 g/dL (32.0-36.0); Mean Corpuscular Hemoglobin 32.8 pg (27.0-31.0); Mean Corpuscular Volume 95.4 fL (78.0-98.0); Mean Platelet Volume 8.8 fL (7.4-10.4); Platelet Count 157 thou/uL (130-400); RBC Distribution Width 12.3 % (11.5-14.5); White Blood Cell (WBC) Count 8.9 thou/uL (4.8-10.8)
[2020-05-30 05:11] LABS: Albumin 3.7 g/dL (3.5-5.0); Anion Gap 14 mmol/L (10-20); BUN (Urea Nitrogen) 36 mg/dL (7.0-18.7); Bilirubin, Total 0.3 mg/dL (0.2-1.2); Calc. Creatinine Clearance 45 mL/min (70-130); Calcium 10.3 mg/dL (7.8-10.44); Carbon Dioxide 25 mmol/L (22-29); Chloride 106 mmol/L (98-107); Glucose 93 mg/dL (70-105); Potassium 3.3 mmol/L (3.5-5.1); Protein, Total 6.6 g/dL (6.0-8.3); Sodium 142 mmol/L (136-145)
[2020-05-30 05:12] LABS: ALT (SGPT) 26 U/L (8-55); AST (SGOT) 27 U/L (5-34); Alkaline Phosphatase 60 U/L (40-110); Globulin 2.9 g/dL (2.4-3.5); Magnesium 1.7 mg/dL (1.6-2.6)
[2020-05-30 05:47] LABS: Phosphorus 4.1 mg/dL (2.3-4.7)
[2020-05-30] MEDS: Amlodipine 10 MG TAB PO SCH (08:44)
[2020-05-30] MEDS: Sodium Chloride 0.9% 1,000 ML IV SCH (08:44)
[2020-05-30] MEDS: Calcium Carbonate 500 MG ChewTAB PO SCH (08:45)
[2020-05-30] MEDS: cloNIDine 0.1 MG TAB PO SCH (12:42)
[2020-05-30] MEDS: cloNIDine 0.1 MG TAB PO PRN (12:51)
[2020-05-30 12:53] VITALS: BP 194/95
[2020-05-30 12:59] VITALS: TEMP 98.1
== END 2020-05-30 13:07 | disposition home or self-care (01) | DRG 683 ==
LOC: ERS 11:34 → 2NO 15:38
PROVIDERS: ADMIT Internal Medicine; ATTEND Family Medicine
DX: N17.9 Acute kidney failure, unspecified (principal); Z68.42 Body mass index [BMI] 45.0-49.9, adult; E83.52 Hypercalcemia; F17.210 Nicotine dependence, cigarettes, uncomplicated; E87.6 Hypokalemia; G47.00 Insomnia, unspecified; E86.0 Dehydration; E20.0 Idiopathic hypoparathyroidism; E66.01 Morbid (severe) obesity due to excess calories; G43.909 Migraine, unspecified, not intractable, without status migrainosus; I12.9 Hypertensive chronic kidney disease with stage 1 through stage 4 chronic kidney disease, or unspecified chronic kidney disease; N18.9 Chronic kidney disease, unspecified; I16.0 Hypertensive urgency; Z98.51 Tubal ligation status
CPT/HCPCS: 36415; 76770; 80053; 81001; 82306; 82340; 83735; 83970; 84100; 84484; 85025; 93005; J0360; Q0163